=== PATIENT | female | born 1935 | race Caucasian/White ===

== ENCOUNTER 2017-11-18 09:17 | Inpatient (IN) | payer OTHER ==
[~2017-11-18] VITALS: Ht 154.9 cm; Wt 86.2 kg
--- NOTE | 2017-11-18 09:19 | NUR ---
PT TAKEN BY WHEELCHAIR TO BED 4
--- NOTE | 2017-11-18 09:20 | NUR ---
82 yo female brought in by c/o htn. pt states " she was walking to er from the front of the hospital and slip and fell; called er and staff went outside to come get the pt. pt was brought to er bed 4 at this time. Pt denies any cp or sob. Only reports mild dizziness. Pt AOOx3, in NAD. Vietnamese speaking. at bedside at this time. reports pt has broken right elbow from last december. bed down; bedrails up x 1; er md aware and notified of pt status. med hx: htn, fibromyalgia, pacemaker rx: eliquis,digitek,meloxican,alprazolam,spironolactone,hydrodone
[2017-11-18 09:26] VITALS: BP 151/113
--- NOTE | 2017-11-18 09:40 | NUR ---
DR MIJARES EVALUATING AT BEDSIDE
[2017-11-18] MEDS ORDERED: MECLIZINE 25 MG TAB PO ONE (09:45)
[2017-11-18] MEDS ORDERED: cloNIDine 0.1 MG TAB PO ONE (09:45)
[2017-11-18] MEDS ORDERED: ALPRAZolam 0.5 MG TAB PO ONE (09:45)
[2017-11-18 10:22] LABS: BASOPHILS # (AUTO) 0.1 K/uL (0.00-0.22); BASOPHILS % (AUTO) 0.6 % (0.0-2.0); EOSINOPHILS # (AUTO) 0.1 K/uL (0-0.4); EOSINOPHILS % (AUTO) 0.6 % (0.0-4.0); HEMATOCRIT 38.8 % (36-48); HEMOGLOBIN 12.6 g/dL (12.0-16.0); LYMPHOCYTES # (AUTO) 2.6 K/uL (2.5-16.5); LYMPHOCYTES % (AUTO) 26.7 % (20.5-51.1); MEAN CORPUSCULAR HEMOGLOBIN 26 pg (27-31); MEAN CORPUSCULAR HGB CONC 32 g/dL (33-37); MEAN CORPUSCULAR VOLUME 78.5 fL (80-94); MONOCYTES # (AUTO) 0.7 K/uL (0.8-1.0); MONOCYTES % (AUTO) 6.7 % (1.7-9.3); NEUTROPHILS # (AUTO) 6.4 K/uL (1.8-7.7); NEUTROPHILS % (AUTO) 65.4 % (42.2-75.2); PLATELET COUNT (AUTO) 352 K/uL (140-450); RED BLOOD CELL COUNT(AUTO) 4.94 MIL/uL (4.20-5.40); RED CELL DISTRIBUTION WIDTH 20.4 % (11.6-13.7); WHITE BLOOD COUNT (AUTO) 9.8 K/uL (4.8-10.8)
[2017-11-18 10:34] LABS: APPEARANCE,URINE CLEAR (CLEAR); BILIRUBIN,URINE NEGATIVE (NEGATIVE); BLOOD, URINE NEGATIVE (NEGATIVE); COLOR,URINE YELLOW (YELLOW); LEUKOCYTE ESTERASE ,URINE NEGATIVE (NEGATIVE); NITRITE, URINE NEGATIVE (NEGATIVE); UGLUCOSE NEGATIVE (NEGATIVE)
--- NOTE | 2017-11-18 10:36 | NUR ---
XRAY AT BEDSIDE
[2017-11-18 10:44] LABS: ANION GAP 11.4 (8-16); CARBON DIOXIDE 27.5 mmol/L (21-32); CHLORIDE 104 mmol/L (98-107); CREATININE 0.8 mg/dL (0.6-1.3); GLUCOSE 98 mg/dL (74-106); POTASSIUM 3.9 mmol/L (3.5-5.1); SODIUM SERUM 139 mmol/L (136-145); UREA NITROGEN, BLOOD 13 mg/dL (7-18)
[2017-11-18 10:45] LABS: PROTHROMBIN TIME 10.1 secs (10.8-13.4)
[2017-11-18 10:50] LABS: ALBUMIN 3.7 g/dL (3.4-5.0); AMYLASE 27 U/L (25-115); ASPARTATE AMINOTRANSFERASE 26 U/L (15-37); LIPASE 104 U/L (73-393); TOTAL BILIRUBIN 0.4 mg/dL (0.0-1.0)
[2017-11-18] MEDS ORDERED: HYDROcodone/APAP 7.5/325 MG 1 TAB PO PRN (11:35)
[2017-11-18] MEDS ORDERED: ACETAMINOPHEN 325 MG TAB PO PRN (11:35)
[2017-11-18] MEDS ORDERED: DOCUSATE SODIUM 100 MG GELCAP PO PRN (11:35)
[2017-11-18] MEDS ORDERED: ONDANSETRON 4 MG/2 ML VIAL IM/IVP PRN (11:35)
[2017-11-18] MEDS ORDERED: MECLIZINE 25 MG TAB PO PRN (11:40)
[2017-11-18 12:00] VITALS: BP 123/66
--- NOTE | 2017-11-18 12:05 | NUR ---
Patient will be admitted to care of dr. lewis. Admited to stephen vargas. Will go to room 125-a . Belongings list completed. Report to stephen johnson.
[2017-11-18 12:18] LABS: BARBITURATE, URINE NEG. ng/ml (NEG <=200); BENZODIAZEPINE, URINE POS. ng/mL (NEG <=200); CANNABINOID, URINE NEG. ng/mL (NEG <=50); COCAINE, URINE NEG. ng/mL (NEG <=300); OPIATE, URINE NEG. ng/mL (NEG <=2000); PHENCYCLIDINE SCREEN,URINE NEG. ng/mL (NEG <=25)
[2017-11-18 12:30] LABS: FREE T4 (FREE THYROXINE) 1.04 ng/dL (0.76-1.46); MAGNESIUM 2.2 mg/dL (1.8-2.4); THYROID STIMULATING HORMONE 1.98 uIU/mL (0.34-3.74)
[2017-11-18] MEDS: NACL 0.9% 1,000 ML IV SCH (12:42)
[2017-11-18] MEDS ORDERED: HYDR-118 PO (13:22)
[2017-11-18] MEDS ORDERED: DIGO-143 PO (13:22)
[2017-11-18] MEDS ORDERED: APIX2.5 PO (13:22)
[2017-11-18] MEDS ORDERED: MELO15TA11 PO (13:22)
[2017-11-18] MEDS ORDERED: ACET-787 PO (13:22)
[2017-11-18] MEDS ORDERED: ALPR2TAB1 PO (13:22)
--- NOTE | 2017-11-18 16:00 | NUR ---
PATIENT ADMITTED TO THE UNIT. PATIENT AWAKE, ALERT AND ORIENTED. NO S/S OF DISTRESS. PATIENT DENIES PAIN. PATIENT ON ROOM AIR. NO SOB. PATIENT PLACED ON TELE MONITORING. BED LOWERED WITH CALL LIGHT WITHIN REACH. WILL CONTINUE TO MONITOR
[2017-11-18] MEDS ORDERED: ALPRAZolam 0.5 MG TAB PO PRN (16:10)
[2017-11-18] MEDS ORDERED: HYDROcodone/APAP 10/325 MG 1 TAB TAB PO PRN (16:10)
[2017-11-18] MEDS ORDERED: NON-FORMULARY ITEM (Meloxicam* (Mobic*) 1 TAB) PO PRN (16:10)
[2017-11-18] MEDS ORDERED: HYDROCHLOROTHIAZIDE 25 MG TAB PO SCH (17:00)
[2017-11-18] MEDS ORDERED: DIGOXIN 0.125 MG TAB PO SCH (17:00)
--- NOTE | 2017-11-18 17:45 | NUR ---
PATIENT ABLE TO AMBULATE TO THE BEDSIDE COMMODE. PATIENT VOIDED
[2017-11-18 18:09] VITALS: BP 139/82
--- NOTE | 2017-11-18 19:10 | NUR ---
PATIENT REPORT GIVEN AT BEDSIDE. PATIENT ENDORSED IN STABLE CONDITION
--- NOTE | 2017-11-18 19:11 | NUR ---
REPORT RECEIVED FROM AM NURSE AT BEDSIDE. PT IN STABLE CONDITION. AAOX4. INTRODUCED SELF TO PT AND BOARD UPDATED. PT IS MALTESE SPEAKING ONLY. PT HAS PACEMAKER. IV SITE PATENT AND INTACT. SKIN WARM, DRY, AND INTACT WITH NO OPEN WOUNDS. BED LOCKED IN LOW POSITION. CALL ARREAGA WITHIN REACH.
[2017-11-18 20:00] VITALS: BP 121/71
--- NOTE | 2017-11-18 20:00 | NUR ---
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 MOVED TO BED 110B.
[2017-11-18] MEDS: DOCUSATE SODIUM 100 MG GELCAP PO SCH (20:27)
[2017-11-18] MEDS: APIXABAN 2.5 MG TAB PO SCH (20:29)
--- NOTE | 2017-11-18 20:30 | NUR ---
DOCUSATE AND ELIQUIS GIVEN. PT TOLERATED WELL.
[2017-11-18] MEDS ORDERED: ARTIFICIAL TEARS OPHTH OINT 3.5 GM TUBE OP SCH (21:00)
[2017-11-18] MEDS ORDERED: APIXABAN 2.5 MG TAB PO SCH (21:00)
--- NOTE | 2017-11-18 23:10 | NUR ---
PT ABLE TO AMBULATE AND HAS PRIVILEGES FOR BEDSIDE COMMODE. STANDBY ASSIST FOR COMMODE USE.
[2017-11-19] VITALS: BP 112/90
--- NOTE | 2017-11-19 01:30 | NUR ---
PT SLEEPING COMFORTABLY IN BED. NO S/S OF DISTRESS. WILL CONTINUE TO MONITOR.
--- NOTE | 2017-11-19 03:20 | NUR ---
PT AWAKE AND ALERT. REQUIRES HELP TO USE COMMODE. PT DENIES ANY DIZZINESS. WILL CONTINUE TO MONITOR.
[2017-11-19] MEDS: NACL 0.9% 1,000 ML IV SCH ×2 (03:42→13:35)
[2017-11-19 04:00] VITALS: BP 152/89
--- NOTE | 2017-11-19 05:20 | NUR ---
PT SLEEPING COMFORTABLY SUPINE. CHEST EXPANSION VISIBLE. BREATHING AUDIBLE. NO S/S OF DISTRESS NOTED. WILL CONTINUE TO MONITOR.
--- NOTE | 2017-11-19 07:10 | NUR ---
REPORT GIVEN TO AM NURSE. PT IN STABLE CONDITION.
--- NOTE | 2017-11-19 07:11 | NUR ---
ASSUMED CONTINUITY OF CARE. NO SIGNS AND SYMPTOMS OF ACUTE DISTRESS NOTICED. INITIAL ASSESSMENT DONE. KEEP COMFORTABLE ON BED. EXPLAINED DIAGNOSIS, PLAN OF CARE, PAIN MANAGEMENT TEACHING, USE OF CALL LIGHT/BED/TV/BATHROOM. VERBALIZED UNDERSTANDING. FALL PRECAUTION APPLIED. CALL LIGHT WITHIN REACH.
--- NOTE | 2017-11-19 07:30 | NUR ---
Patient's Plan of Care was discussed and reviewed with HEADING UP MACHINE OPERATOR: LEON.
[2017-11-19 07:47] LABS: BASOPHILS % (AUTO) 0.6 % (0.0-2.0); EOSINOPHILS % (AUTO) 0.6 % (0.0-4.0); HEMATOCRIT 41.1 % (36-48); HEMOGLOBIN 13.5 g/dL (12.0-16.0); LYMPHOCYTES # (AUTO) 2.7 K/uL (2.5-16.5); LYMPHOCYTES % (AUTO) 34.8 % (20.5-51.1); MEAN CORPUSCULAR HEMOGLOBIN 26 pg (27-31); MEAN CORPUSCULAR HGB CONC 33 g/dL (33-37); MEAN CORPUSCULAR VOLUME 78.1 fL (80-94); MONOCYTES # (AUTO) 0.6 K/uL (0.8-1.0); MONOCYTES % (AUTO) 7.3 % (1.7-9.3); NEUTROPHILS # (AUTO) 4.5 K/uL (1.8-7.7); NEUTROPHILS % (AUTO) 56.7 % (42.2-75.2); PLATELET COUNT (AUTO) 335 K/uL (140-450); RED BLOOD CELL COUNT(AUTO) 5.26 MIL/uL (4.20-5.40); RED CELL DISTRIBUTION WIDTH 20.7 % (11.6-13.7); WHITE BLOOD COUNT (AUTO) 7.8 K/uL (4.8-10.8)
[2017-11-19 08:00] VITALS: BP_SYST 140; BP_SYST 167; BP_DIAS 88; BP_DIAS 98; BP_DIAS 99
[2017-11-19 08:22] LABS: ANION GAP 12.6 (8-16); CARBON DIOXIDE 26.3 mmol/L (21-32); CHLORIDE 104 mmol/L (98-107); CREATININE 0.7 mg/dL (0.6-1.3); GLUCOSE 98 mg/dL (74-106); POTASSIUM 3.9 mmol/L (3.5-5.1); SODIUM SERUM 139 mmol/L (136-145); UREA NITROGEN, BLOOD 9 mg/dL (7-18)
[2017-11-19 08:25] LABS: MAGNESIUM 2.1 mg/dL (1.8-2.4); PHOSPHORUS 4.2 mg/dL (2.5-4.9)
[2017-11-19 08:53] LABS: CHOL/HDL RATIO 3.4 (1-4.5)
[2017-11-19] MEDS: HYDROCHLOROTHIAZIDE 25 MG TAB PO SCH (08:57)
[2017-11-19] MEDS: APIXABAN 2.5 MG TAB PO SCH ×2 (08:59→20:35)
[2017-11-19] MEDS: DIGOXIN 0.125 MG TAB PO SCH (08:59)
[2017-11-19] MEDS ORDERED: DIGOXIN 125 MCG PO SCH (09:00)
[2017-11-19] MEDS: DOCUSATE SODIUM 100 MG GELCAP PO SCH ×2 (09:00→20:33)
[2017-11-19] MEDS: SPIRONOLACTONE 25 MG TAB PO SCH (09:03)
--- NOTE | 2017-11-19 09:15 | NUR ---
PATIENT HAS BEEN SCREENED AND CATEGORIZED MODERATE NUTRITION RISK. PATIENT WILL BE SEEN WITHIN 3-5 DAYS OF ADMISSION. 11/20/17 11/22/[address]
--- NOTE | 2017-11-19 09:55 | NUR ---
PHYSICAL THERAPIST CAME FOR PT. EVAL AND TREATMENT.
[2017-11-19 12:00] VITALS: BP 138/80
--- NOTE | 2017-11-19 12:54 | NUR ---
DR. MURGUIA CAME AND SPOKE TO PT. AT BEDSIDE.
--- NOTE | 2017-11-19 15:00 | NUR ---
DR. DUKES CAME AND SPOKE TO PT. AT BEDSIDE.
[2017-11-19 16:00] VITALS: BP 126/83
--- NOTE | 2017-11-19 16:00 | NUR ---
VITALS SIGNS STABLE. NO C/O PAIN. WILL MONITOR.
--- NOTE | 2017-11-19 19:10 | NUR ---
BEDSIDE REPORT GIVEN TO GLENIS WILHELM. IVF INFUSING WELL. IN STABLE CONDITION.
--- NOTE | 2017-11-19 19:11 | NUR ---
RECEIVED BEDSIDE REPORT FROM DAY SHIFT NURSE AKBAR BUSTAMANTE, PT IN STABLE CONDITION, NO DISTRESS NOTED, IV TO R FA 22G PATENT INTACT, INFUSING NS @ 50ML/HR, INFUSING WELL, PT ON ROOM AIR, NO SOB, INITIAL ASSESSMENT, DONE, ALL SAFETY PRECAUTION MET, WILL CONTINUE TO MONITOR.
[2017-11-19 20:00] VITALS: BP 128/78
--- NOTE | 2017-11-19 20:33 | NUR ---
DUE MEDICATION ADMINISTERED, PT TOLERATED WELL, NO DISTRESS NOTED, CALL LIGHT WITHIN REACH, WILL CONTINUE TO MONITOR.
--- NOTE | 2017-11-19 23:39 | NUR ---
CHECKED ON PT, PT SLEEPING, NO DISTRESS NOTED, PT A LITTLE CONFUSED, STATED THAT SHE WANTS TO GET OUT OF BED AND GO TO HER ROOM, ORIENT PT THAT SHE IS IN THE HOSPITAL, PT STATED UNDERSTANDING AND WENT BACK TO BED, V/S TAKEN, WITHIN PT BASELINE, CALL LIGHT WITHIN REACH, BED ALARM ON, WILL CONTINUE TO MONITOR.
[2017-11-20] VITALS: BP 127/73
--- NOTE | 2017-11-20 00:58 | NUR ---
PT AGITATED STATED SHE NEEDS TO GO BACK TO HER FAMILY, ANXIETY MEDICATION PER MD ORDER ADMINISTERED, PT TOLERATE WELL, NO DISTRESS NOTED, BED ALARM ON , CALL LIGHT WITHIN REACH, WILL CONTINUE TO MONITOR.
--- NOTE | 2017-11-20 02:30 | NUR ---
PT RESTING, NO DISTRESS NOTED, CALL LIGHT WITHIN REACH, WILL CONTINUE TO MONITOR.
[2017-11-20 04:00] VITALS: BP 118/80
--- NOTE | 2017-11-20 04:10 | NUR ---
PT RESTING, NO DISTRESS NOTED, V/S TAKEN, WNL, CALL LIGHT WITHIN REACH, WILL CONTINUE TO MONITOR.
[2017-11-20 06:36] LABS: T4 (THYROXINE) 7.8 ug/dL (4.5-12.0)
--- NOTE | 2017-11-20 07:08 | NUR ---
ASSUMED CONTINUITY OF CARE. NO SIGNS AND SYMPTOMS OF ACUTE DISTRESS NOTED. INITIAL ASSESSMENT DONE. RE-ORIENTED TO EVENTS AND SURROUNDINGS. KEEP COMFORTABLE ON BED. FALL PRECAUTION APPLIED. CALL LIGHT WITHIN REACH.
--- NOTE | 2017-11-20 07:18 | NUR ---
ENDORSED PT TO DAY SHIFT NURSE AKBAR BUSTAMANTE, PT IN STABLE CONDITION, NO DISTRESS NOTED, CALL LIGHT WITHIN REACH.
[2017-11-20 08:00] VITALS: BP_SYST 114; BP_SYST 120; BP_SYST 123; BP_DIAS 77; BP_DIAS 84; BP_DIAS 86
[2017-11-20] MEDS ORDERED: LOSARTAN 50 MG TAB PO SCH (09:00)
[2017-11-20] MEDS: NACL 0.9% 1,000 ML IV SCH (09:04)
[2017-11-20] MEDS: HYDROCHLOROTHIAZIDE 25 MG TAB PO SCH (09:06)
[2017-11-20] MEDS: SPIRONOLACTONE 25 MG TAB PO SCH (09:06)
[2017-11-20] MEDS: DOCUSATE SODIUM 100 MG GELCAP PO SCH (09:06)
[2017-11-20] MEDS: DIGOXIN 0.125 MG TAB PO SCH (09:07)
[2017-11-20] MEDS: APIXABAN 2.5 MG TAB PO SCH (09:12)
[2017-11-20] MEDS ORDERED: OLME20TA24 PO (10:20)
[2017-11-20] MEDS ORDERED: DOCU-299 PO (10:20)
[2017-11-20] MEDS ORDERED: DIGO-143 PO (10:20)
--- NOTE | 2017-11-20 11:00 | NUR ---
Technologist Development Notes: I Faxed to [facility] patient's Clinical Information and MD order for patient to return to SNF for IV antibiotics.
[2017-11-20 12:00] VITALS: BP 117/63
--- NOTE | 2017-11-20 12:30 | NUR ---
Flaker Operator Notes: I received a call from Cira from admissions at [facility] stating that she received Patient's Clinical information and MD order for P.T. Per Cira Patient was accepted for services. Per Cira patient will be scheduled to be seen tomorrow and [facility] will be following up and ordering the walker. I thanked Cira for the information and I ended the call.
--- NOTE | 2017-11-20 12:55 | NUR ---
CALLED [facility] AND VERIFIED ORDER FOR PT. HOME HEALTH AND [facility]. PER SOCIAL PATTY COLMENARES, HOME HEALTH WAS ALREADY BEEN SET UP AND [facility] WILL JUST DELIVER AT PT. HOME, AND PT. CAN BE D/C HOME. INFORMED CHARGE NURSE KATELIN WILHELM.
--- NOTE | 2017-11-20 13:00 | NUR ---
Fur Cleaner Notes: I called [facility] at and I spoke to Loulou from admissions to confirm that she received patient's clinical information and MD Order to return to the facility for IV antibiotics and an isolation bed. Per Loulou she did reviewed patient's information, and stated that she will review it and will be contacting these copywriter back to give me an Isolation room and accepting MD who will be following patient's care in their facility. Florian Loulou patient on a vent to track and has no issues getting his medications. Florian Loulou Patient has son Byron as patient's health care decision maker. Florian Loulou Patient is able to return to the facility when he is ready and clear for a discharge.
--- NOTE | 2017-11-20 14:15 | NUR ---
WITH [email or web address] PHONE AND CONTINUOUS VULCANIZING MACHINE OPERATOR NUMBER [id number], ALSO EXPLAINED TO PT. AND TO PT. ABOUT HOME HEALTH SERVICE AND [facility]. THEY VERBALIZED UNDERSTANDING.
--- NOTE | 2017-11-20 14:15 | NUR ---
USED [employer] PHONE WITH LOGISTICS ANALYST NUMBER [phone]. EXPLAINED TO PT. AND PT. ABOUT MD D/C ORDER, D/C INSTRUCTIONS AND TEACHING, DR. ARTHUR FOLLOW UP, DR. MARTINEZ FOLLOW UP, MD D/C PRESCRIPTION LIST EDUCATION, DISEASE MANAGEMENT TEACHING. PT. AND PT. VERBALIZED UNDERSTANDING.
--- NOTE | 2017-11-20 14:30 | NUR ---
D/C VIA WHEELCHAIR WITH ASSISTANCE FROM ALAN MARTI, ACCOMPANIED BY PT. . PT. IN STABLE CONDITION. INFORMED CHARGE NURSE KATELIN WILHELM.
== END 2017-11-20 14:30 | disposition home health service (06) | DRG 73 ==
LOC: MED 09:17 → MTU 11:36
PROVIDERS: ADMIT General Practice; ATTEND General Practice
DX: G90.9 Disorder of the autonomic nervous system, unspecified (principal); I50.43 Acute on chronic combined systolic (congestive) and diastolic (congestive) heart failure; I11.0 Hypertensive heart disease with heart failure; E78.5 Hyperlipidemia, unspecified; G47.33 Obstructive sleep apnea (adult) (pediatric); I08.3 Combined rheumatic disorders of mitral, aortic and tricuspid valves; M79.7 Fibromyalgia; I48.2 Chronic atrial fibrillation; I49.5 Sick sinus syndrome; M19.90 Unspecified osteoarthritis, unspecified site; W18.30XA Fall on same level, unspecified, initial encounter; Z96.653 Presence of artificial knee joint, bilateral; F41.9 Anxiety disorder, unspecified; E66.01 Morbid (severe) obesity due to excess calories; Z68.35 Body mass index [BMI] 35.0-35.9, adult; Z82.5 Family history of asthma and other chronic lower respiratory diseases; Z90.49 Acquired absence of other specified parts of digestive tract; Z90.722 Acquired absence of ovaries, bilateral; Z90.710 Acquired absence of both cervix and uterus; Z91.19 Patient's noncompliance with other medical treatment and regimen; Z95.0 Presence of cardiac pacemaker; Y93.89 Activity, other specified; Y99.8 Other external cause status; Z79.899 Other long term (current) drug therapy; Z82.49 Family history of ischemic heart disease and other diseases of the circulatory system; Y92.481 Parking lot as the place of occurrence of the external cause; Z98.1 Arthrodesis status
CPT/HCPCS: 36415; 70450; 71045; 72040; 80048; 80053; 80162; 80305; 81003; 82150; 83036; 83690; 83735; 83880; 84100; 84436; 84439; 84443; 84479; 84484; 85025; 85610; 85730; 87081; 93005; 93880; 97542; 99285; J7030; J8597; Q0092

== ENCOUNTER 2018-01-21 10:10 | Inpatient (IN) | payer OTHER ==
[~2018-01-21] VITALS: Ht 152.4 cm; Wt 90.7 kg
[~2018-01-21 10:10] MED LIST: ACET-787 PO; ALPR2TAB1 PO; APIX2.5 PO; DIGO-143 PO; DOCU-299 PO; HYDR-118 PO; OLME20TA24 PO
[2018-01-21 10:34] VITALS: BP 125/69
[2018-01-21] MEDS ORDERED: ALPR2TAB1 PO (11:05)
[2018-01-21] MEDS ORDERED: CARER90 PO (11:05)
[2018-01-21] MEDS ORDERED: TRAM50TA1 PO (11:05)
[2018-01-21] MEDS ORDERED: DIGO0.122 PO (11:05)
[2018-01-21] MEDS ORDERED: ACET-5629 PO (11:05)
[2018-01-21] MEDS ORDERED: NACL 0.9% 500 ML IV ONE ×2 (11:10)
[2018-01-21 11:58] LABS: BASOPHILS # (AUTO) 0.1 K/uL (0.00-0.22); BASOPHILS % (AUTO) 0.8 % (0.0-2.0); EOSINOPHILS % (AUTO) 0.4 % (0.0-4.0); HEMATOCRIT 36.4 % (36-48); HEMOGLOBIN 11.8 g/dL (12.0-16.0); LYMPHOCYTES # (AUTO) 1.8 K/uL (2.5-16.5); LYMPHOCYTES % (AUTO) 21.9 % (20.5-51.1); MEAN CORPUSCULAR HEMOGLOBIN 26 pg (27-31); MEAN CORPUSCULAR HGB CONC 33 g/dL (33-37); MEAN CORPUSCULAR VOLUME 81.3 fL (80-94); MONOCYTES # (AUTO) 0.7 K/uL (0.8-1.0); NEUTROPHILS # (AUTO) 5.5 K/uL (1.8-7.7); NEUTROPHILS % (AUTO) 67.9 % (42.2-75.2); PLATELET COUNT (AUTO) 325 K/uL (140-450); RED BLOOD CELL COUNT(AUTO) 4.48 MIL/uL (4.20-5.40); WHITE BLOOD COUNT (AUTO) 8.1 K/uL (4.8-10.8)
[2018-01-21 12:16] LABS: PROTHROMBIN TIME 10.4 secs (10.8-13.4)
[2018-01-21 12:34] LABS: ALBUMIN 3.3 g/dL (3.4-5.0); ASPARTATE AMINOTRANSFERASE 36 U/L (15-37); CARBON DIOXIDE 26.2 mmol/L (21-32); CHLORIDE 102 mmol/L (98-107); CREATININE 0.9 mg/dL (0.6-1.3); GLUCOSE 104 mg/dL (74-106); POTASSIUM 3.2 mmol/L (3.5-5.1); SODIUM SERUM 134 mmol/L (136-145); TOTAL BILIRUBIN 0.6 mg/dL (0.0-1.0); UREA NITROGEN, BLOOD 9 mg/dL (7-18)
[2018-01-21 13:53] LABS: APPEARANCE,URINE CLEAR (CLEAR); COLOR,URINE YELLOW (YELLOW)
[2018-01-21 13:54] LABS: BILIRUBIN,URINE NEGATIVE (NEGATIVE); BLOOD, URINE NEGATIVE (NEGATIVE); LEUKOCYTE ESTERASE ,URINE NEGATIVE (NEGATIVE); NITRITE, URINE NEGATIVE (NEGATIVE); UGLUCOSE NEGATIVE (NEGATIVE)
[2018-01-21] MEDS ORDERED: DOCUSATE SODIUM 100 MG GELCAP PO PRN (15:40)
[2018-01-21] MEDS ORDERED: LORazepam 2 MG/ML VIAL IM/IVP PRN (15:40)
[2018-01-21] MEDS ORDERED: HYDROcodone/APAP 5/325 MG 1 TAB TAB PO PRN (15:40)
[2018-01-21] MEDS ORDERED: MORPHINE SULFATE 2 MG/ML SYR IVP PRN (15:40)
[2018-01-21] MEDS ORDERED: ZOLPIDEM 5 MG TAB PO PRN (15:40)
[2018-01-21] MEDS ORDERED: ACETAMINOPHEN 325 MG TAB PO PRN (15:40)
[2018-01-21] MEDS ORDERED: ONDANSETRON 4 MG/2 ML VIAL IM/IVP PRN (15:40)
[2018-01-21] MEDS ORDERED: NITROGLYCERIN 0.4 MG TAB SL PRN (16:20)
[2018-01-21] MEDS ORDERED: MECLIZINE 25 MG TAB PO PRN (16:20)
[2018-01-21] MEDS ORDERED: HYDROcodone/APAP 10/325 MG 1 TAB TAB PO PRN (16:30)
[2018-01-21] MEDS ORDERED: ALPRAZolam 0.5 MG TAB PO PRN (16:30)
[2018-01-21] MEDS ORDERED: NON-FORMULARY ITEM (Oxycodone HCl/Acetaminophen (Percocet 5-325 mg Tablet) 1 TAB) PO PRN (16:30)
[2018-01-21] MEDS ORDERED: traMADol 50 MG TAB PO PRN (16:30)
[2018-01-21] MEDS ORDERED: APIX2.5 PO (16:34)
[2018-01-21 16:40] VITALS: BP 124/73
[2018-01-21] MEDS ORDERED: DEXTROSE 50% 50 ML SYR IVP PRN (16:45)
[2018-01-21] MEDS ORDERED: INSULIN LISPRO SLIDING SCALE 100 UNITS/ML VIAL SUBQ PRN (16:45)
[2018-01-21] MEDS ORDERED: POTASSIUM CHLORIDE 10 MEQ TABER PO SCH (17:00)
[2018-01-21] MEDS: NACL 0.9% 1,000 ML IV SCH (17:15)
[2018-01-21] MEDS ORDERED: oxyCODONE/APAP 5/325 MG 1 TAB TAB PO PRN (17:25)
[2018-01-21 20:00] VITALS: BP 118/82
[2018-01-21] MEDS: BLOOD GLUCOSE MONITORING 1 DEV DEV FS SCH (21:20)
[2018-01-21] MEDS: DILTIAZEM 30 MG TAB PO SCH (21:21)
[2018-01-21] MEDS: APIXABAN 2.5 MG TAB PO SCH (21:22)
[2018-01-22] VITALS (9 sets, daily range): BP systolic 125–160; BP diastolic 67–100
[2018-01-22] MEDS: DILTIAZEM 30 MG TAB PO SCH ×3 (05:13→21:50)
[2018-01-22] MEDS: BLOOD GLUCOSE MONITORING 1 DEV DEV FS SCH ×4 (06:16→21:51)
[2018-01-22 08:01] LABS: ANION GAP 12.1 (8-16); CARBON DIOXIDE 22.6 mmol/L (21-32); CHLORIDE 105 mmol/L (98-107); CREATININE 0.8 mg/dL (0.6-1.3); GLUCOSE 100 mg/dL (74-106); POTASSIUM 3.7 mmol/L (3.5-5.1); SODIUM SERUM 136 mmol/L (136-145); UREA NITROGEN, BLOOD 8 mg/dL (7-18)
[2018-01-22 08:17] LABS: MAGNESIUM 1.8 mg/dL (1.8-2.4); PHOSPHORUS 3.9 mg/dL (2.5-4.9)
[2018-01-22 08:19] LABS: CHOL/HDL RATIO 4.3 (1-4.5)
[2018-01-22 08:29] LABS: T4 (THYROXINE) 8.8 ug/dL (4.5-12.0)
[2018-01-22] MEDS: SPIRONOLACTONE 25 MG TAB PO SCH (08:50)
[2018-01-22] MEDS: DIGOXIN 0.125 MG TAB PO SCH (08:51)
[2018-01-22] MEDS: NACL 0.9% 1,000 ML IV SCH (08:52)
[2018-01-22] MEDS: APIXABAN 2.5 MG TAB PO SCH ×2 (08:55→21:49)
[2018-01-22] MEDS ORDERED: [UNRECOGNIZED DRUG - OTHER] PO SCH (09:00)
[2018-01-22] MEDS: HYDROCHLOROTHIAZIDE 25 MG TAB PO SCH (09:08)
[2018-01-22] MEDS ORDERED: ALBUTEROL SULFATE/IPRATROPIU 3 ML SOL IH PRN (09:10)
[2018-01-22 10:28] LABS: BASOPHILS # (AUTO) 0.1 K/uL (0.00-0.22); BASOPHILS % (AUTO) 1.1 % (0.0-2.0); EOSINOPHILS # (AUTO) 0.1 K/uL (0-0.4); EOSINOPHILS % (AUTO) 1.4 % (0.0-4.0); HEMATOCRIT 34.1 % (36-48); HEMOGLOBIN 11.2 g/dL (12.0-16.0); LYMPHOCYTES # (AUTO) 2.1 K/uL (2.5-16.5); LYMPHOCYTES % (AUTO) 27.9 % (20.5-51.1); MEAN CORPUSCULAR HEMOGLOBIN 27 pg (27-31); MEAN CORPUSCULAR HGB CONC 33 g/dL (33-37); MEAN CORPUSCULAR VOLUME 81.6 fL (80-94); MONOCYTES # (AUTO) 0.7 K/uL (0.8-1.0); MONOCYTES % (AUTO) 9.9 % (1.7-9.3); NEUTROPHILS # (AUTO) 4.4 K/uL (1.8-7.7); NEUTROPHILS % (AUTO) 59.7 % (42.2-75.2); PLATELET COUNT (AUTO) 309 K/uL (140-450); RED BLOOD CELL COUNT(AUTO) 4.18 MIL/uL (4.20-5.40); RED CELL DISTRIBUTION WIDTH 17.4 % (11.6-13.7); WHITE BLOOD COUNT (AUTO) 7.4 K/uL (4.8-10.8)
[2018-01-23] VITALS: BP 132/81
[2018-01-23] MEDS: NACL 0.9% 1,000 ML IV SCH (00:59)
[2018-01-23 04:00] VITALS: BP 115/90
[2018-01-23] MEDS: DILTIAZEM 30 MG TAB PO SCH (05:35)
[2018-01-23] MEDS ORDERED: MECL-272 PO (06:41)
[2018-01-23] MEDS: BLOOD GLUCOSE MONITORING 1 DEV DEV FS SCH (07:14)
[2018-01-23 08:00] VITALS: BP 144/74
[2018-01-23] MEDS: HYDROCHLOROTHIAZIDE 25 MG TAB PO SCH (08:38)
[2018-01-23] MEDS: SPIRONOLACTONE 25 MG TAB PO SCH (08:39)
[2018-01-23] MEDS: DIGOXIN 0.125 MG TAB PO SCH (08:40)
[2018-01-23] MEDS: APIXABAN 2.5 MG TAB PO SCH (08:42)
== END 2018-01-23 10:50 | disposition home or self-care (01) | DRG 73 ==
LOC: MED 10:10 → MTU 15:49
PROVIDERS: ADMIT General Practice; ATTEND General Practice
DX: G90.9 Disorder of the autonomic nervous system, unspecified (principal); I50.43 Acute on chronic combined systolic (congestive) and diastolic (congestive) heart failure; E44.1 Mild protein-calorie malnutrition; J98.11 Atelectasis; I42.9 Cardiomyopathy, unspecified; I11.0 Hypertensive heart disease with heart failure; E87.6 Hypokalemia; I34.0 Nonrheumatic mitral (valve) insufficiency; I48.2 Chronic atrial fibrillation; I49.5 Sick sinus syndrome; F41.9 Anxiety disorder, unspecified; I70.90 Unspecified atherosclerosis; M19.012 Primary osteoarthritis, left shoulder; Z95.0 Presence of cardiac pacemaker; Z79.899 Other long term (current) drug therapy; Z90.710 Acquired absence of both cervix and uterus; Z68.39 Body mass index [BMI] 39.0-39.9, adult
CPT/HCPCS: 36415; 70450; 71045; 76604; 80048; 80053; 81003; 82150; 82948; 83605; 83690; 83735; 83880; 84100; 84134; 84436; 84443; 84484; 85025; 85610; 85730; 87040; 87081; 87086; 93005; 93970; 96360; 96361; 97110; 97116; 97530; 99285; J1815; J7030; Q0092

== ENCOUNTER 2018-02-13 15:52 | Emergency (ER) | payer OTHER ==
[~2018-02-13] VITALS: Ht 160 cm; Wt 66.2 kg
[~2018-02-13 15:52] MED LIST changes: +ACET-5629 PO; +CARER90 PO; -DIGO-143 PO; +DIGO0.122 PO; -DOCU-299 PO; +MECL-272 PO; -OLME20TA24 PO; +TRAM50TA1 PO
[2018-02-13 15:55] VITALS: BP 130/69
[2018-02-13] MEDS ORDERED: NACL 0.9% 1,000 ML IV ONE (16:30)
[2018-02-13 17:07] LABS: BASOPHILS # (AUTO) 0.1 K/uL (0.00-0.22); BASOPHILS % (AUTO) 0.8 % (0.0-2.0); EOSINOPHILS % (AUTO) 0.4 % (0.0-4.0); HEMATOCRIT 32.7 % (36-48); HEMOGLOBIN 10.7 g/dL (12.0-16.0); LYMPHOCYTES # (AUTO) 2.6 K/uL (2.5-16.5); LYMPHOCYTES % (AUTO) 27.3 % (20.5-51.1); MEAN CORPUSCULAR HEMOGLOBIN 26 pg (27-31); MEAN CORPUSCULAR HGB CONC 33 g/dL (33-37); MEAN CORPUSCULAR VOLUME 78.9 fL (80-94); MONOCYTES # (AUTO) 0.8 K/uL (0.8-1.0); MONOCYTES % (AUTO) 8.6 % (1.7-9.3); NEUTROPHILS # (AUTO) 5.9 K/uL (1.8-7.7); NEUTROPHILS % (AUTO) 62.9 % (42.2-75.2); PLATELET COUNT (AUTO) 396 K/uL (140-450); RED BLOOD CELL COUNT(AUTO) 4.15 MIL/uL (4.20-5.40); RED CELL DISTRIBUTION WIDTH 16.4 % (11.6-13.7); WHITE BLOOD COUNT (AUTO) 9.4 K/uL (4.8-10.8)
[2018-02-13 17:20] LABS: ANION GAP 9.2 (8-16); CARBON DIOXIDE 28.9 mmol/L (21-32); CHLORIDE 96 mmol/L (98-107); CREATININE 0.9 mg/dL (0.6-1.3); GLUCOSE 98 mg/dL (74-106); POTASSIUM 4.1 mmol/L (3.5-5.1); SODIUM SERUM 130 mmol/L (136-145); UREA NITROGEN, BLOOD 10 mg/dL (7-18)
[2018-02-13 17:23] LABS: APPEARANCE,URINE CLEAR (CLEAR); BILIRUBIN,URINE NEGATIVE (NEGATIVE); BLOOD, URINE NEGATIVE (NEGATIVE); COLOR,URINE YELLOW (YELLOW); LEUKOCYTE ESTERASE ,URINE NEGATIVE (NEGATIVE); NITRITE, URINE NEGATIVE (NEGATIVE); PH,URINE 7.5 (5.0-9.0); UGLUCOSE NEGATIVE (NEGATIVE)
[2018-02-13 17:26] LABS: ALBUMIN 3.5 g/dL (3.4-5.0); ASPARTATE AMINOTRANSFERASE 32 U/L (15-37); TOTAL BILIRUBIN 0.6 mg/dL (0.0-1.0)
[2018-02-13 18:21] VITALS: BP 130/69
== END 2018-02-13 18:21 | disposition home or self-care (01) ==
LOC: MED 15:52
DX: R53.1 Weakness (principal); D64.9 Anemia, unspecified; I10 Essential (primary) hypertension; Z90.49 Acquired absence of other specified parts of digestive tract; Z79.899 Other long term (current) drug therapy
CPT/HCPCS: 36415; 80053; 80162; 81003; 82948; 84484; 85025; 93005; 96360; 99285; C1758; J7030